=== PATIENT | male | born 1940 | race Caucasian/White ===

== ENCOUNTER 2022-03-17 16:56 | Emergency (ER) | payer MEDICARE, SELFPAY ==
--- NOTE | ~2022-03-17 | CT_ITS ---
EXAMINATION: CT abdomen pelvis wo/w con DATE: 03/17/2022 19:13 INDICATION: Hematuria. TECHNIQUE: Computed tomography (CT) of the abdomen and pelvis was performed without and with 130 cc O mnipaque 350 intravenous contrast. The dose-length product was 2564.33 mGy-cm. Automated exposure con trol and iterative reconstruction technique were employed. COMPARISON: None. FINDINGS: There is dependent atelectasis. Heart size normal. No significant pleural or pericardial ef fusion. No renal or ureteral stones. No hydronephrosis. Nonobstructive bowel gas pattern. No evidence for diverticulitis. There is a fat-containing right inguinal hernia. There is atherosclerosis of the aorta without aneurysm. There are a few borderline sized mesenteric lymph nodes, likely reactive. Th ere are gallstones. Fatty infiltration of the liver. The spleen, pancreas, adrenal glands and kidneys are unremarkable. U reters are normal in course and caliber. Prostate gland is enlarged. Bladder wall is thickened. Prost ate gland is enlarged. No acute osseous abnormality. IMPRESSION: 1. Bladder wall thickening which may be due to cystitis or outlet obstruction from enlarged prostate gland. 2: Cholelithiasis. 3: Hepatic steatosis. Reviewed, dictated and finalized at location A. IMPRESSION: 1. Bladder wall thickening which may be due to cystitis or outlet obstruction f rom enlarged prostate gland. 2: Cholelithiasis. 3: Hepatic steatosis.
[2022-03-17 16:58] VITALS: BP 139/69; PULSE 79; RESP 20; TEMP 36.4; O2SAT 99
--- NOTE | 2022-03-17 17:46 | ED.GENADULT ---
HPI - General Adult General Chief complaint: Urogenital-Male Stated complaint: hematuria Time Seen by Provider: 03/17/22 17:05 Source: patient Mode of arrival: ambulatory Limitations: no limitations History of Present Illness HPI narrative: Patient is an 81-year-old male who presents the ED with report of hematuria. Patient reports he had an episode of hematuria just prior to arrival in which blood was mixed in with the urine stream. He denied any dysuria or pain or pressure. He did notice a small amount of blood coming from the tip of his penis afterwards. He denies any back pain, abdominal pain, nausea, vomiting, fevers, testicular pain/swelling. Patient sees a urologist in [facility]. He contacted the office and was referred to the ED. He has had 1 previous episode of hematuria, but did not notify his urologist about this. Patient is not on any blood thinners. Related Data Allergies Allergy/AdvReac Type Severity Reaction Status Date / Time No Known Allergies Allergy Verified 03/17/22 17:13 Review of Systems Review of Systems: CONSTITUTIONAL: Denies fever, chills, or sweats. CARDIOVASCULAR: Denies chest pain. RESPIRATORY: Denies dyspnea. GASTROINTESTINAL: Denies abdominal pain, nausea, vomiting. GENITOURINARY: Reports painless hematuria. Denies dysuria, testicular pain/swelling. MUSCULOSKELETAL: Denies back pain, flank pain. All systems reviewed & are unremarkable except as noted in HPI and below PMFSH Past Medical History Medical History (Updated 03/17/22 @ 19:54 by Lisa Og PA-C) BPH (benign prostatic hyperplasia) Hyperlipidemia Hypertension Surgical History Surgical History (Updated 03/17/22 @ 19:47 by Lisa Og PA-C) No pertinent past surgical history Social History Social History (Updated 03/17/22 @ 17:51 by Lisa Og PA-C) Smoking status: Never smoker Exam Narrative: GENERAL: Well appearing, obese, non-toxic, in no acute distress. HEAD: Normocephalic, atraumatic. NECK: Supple. No adenopathy, no masses. RESPIRATORY: Airway patent, respirations nonlabored. Clear to auscultation bilaterally, no rales, rhonchi, wheezing. CARDIOVASCULAR: Regular rate and rhythm without murmurs, rubs, or gallops. Peripheral pulses 2+ and equal bilaterally. ABDOMINAL: Soft, nontender, nondistended, no hepatosplenomegaly. Normoactive BS. No CVA tenderness to percussion. MUSCULOSKELETAL: Moves all extremities. Strength/ROM intact without gross deformities. No lower back tenderness. SKIN: Warm, dry, normal color. No rashes. NEURO: A&O X3. Speech clear. Cranial nerves II-XII grossly intact. Steady gait. No ataxic movements. PSYCHIATRIC: Appropriate mood and affect. Normal interaction. Course Consultations Consultation #1: Discussed case with Dr. Butler, Urology, will see patient in office. Date: 03/17/22 Time: 19:57 Vital Signs Vital signs: Vital Signs Temperature 97.6 F 03/17/22 16:58 Pulse Rate 79 03/17/22 16:58 Respiratory Rate 20 03/17/22 16:58 Blood Pressure 139/69 03/17/22 16:58 Pulse Oximetry 99 03/17/22 16:58 Temperature 97.6 F 03/17/22 16:58 Pulse Rate 79 03/17/22 16:58 Respiratory Rate 20 03/17/22 16:58 Blood Pressure 139/69 03/17/22 16:58 Pulse Oximetry 99 03/17/22 16:58 Medical Decision Making MDM Narrative Medical decision making narrative: Patient presented to ED with 1 episode of painless hematuria. Vital signs stable upon arrival. Hemoglobin hematocrit stable at 13.3/39.5. Stable kidney function with creatinine at 0.8. Urine with 3+ blood, greater than 75 RBC, no signs of infection. CT scan of abdomen pelvis with and without contrast obtained (CT urogram) and showing bladder wall thickening which may be due to outlet obstruction from enlarged prostate gland. Patient has known history of enlarged prostate gland. He is on Flomax. Discussed case with urology, will see patient in the office for cystoscopy. Isabel
[2022-03-17 17:51] LABS: Basophils Percent Auto 0.4 % (0.2-1.2); Eosinophils Absolute Auto 0.3 K/mm3 (0-0.3); Eosinophils Percent Auto 4.3 % (0-4.4); Hematocrit 39.5 % (42.0-52.0); Hemoglobin 13.3 g/dL (14.0-18.0); Immature Granulocyte Absolute 0.03 K/mm3 (0.00-0.031); Immature Granulocyte Percent A 0.4 % (0-0.5); Lymphocytes Absolute Auto 1.77 K/mm3 (0.9-3.2); Lymphocytes Percent Auto 26.5 % (18.3-44.2); Mean Corpuscular HGB Conc 33.7 g/dl (32-36); Mean Corpuscular Hemoglobin 31.8 pg (26-34); Mean Corpuscular Volume 94.5 fl (80-100); Mean Platelet Volume 10.5 fl (7.4-10.4); Monocytes Absolute Auto 0.7 K/mm3 (0.1-0.6); Monocytes Percent Auto 10.9 % (2.6-8.5); Neutrophils Absolute Auto 3.8 K/mm3 (1.3-6.7); Neutrophils Percent Auto 57.5 % (45.5-73.1); Platelet Count Result 183 k/mm3 (150-375); Red Blood Count 4.18 M/mm3 (4.6-6.20); Red Cell Distribution Width 12.7 % (11.5-14.5); White Blood Count 6.7 K/mm3 (4.5-10.0)
[2022-03-17 18:01] LABS: Alanine Aminotransferase 84 U/L (6-50); Albumin Level 4.6 g/dL (3.5-5.1); Alkaline Phosphatase 75 U/L (38-126); Anion Gap 12 mmol/L (8-16); Aspartate Amino Transferase 72 U/L (17-59); Bilirubin,Total 0.7 mg/dL (0.2-1.3); Blood Urea Nitrogen 15 mg/dL (9-20); Calcium 9.2 mg/dL (8.4-10.2); Carbon Dioxide 21 mmol/L (22-30); Chloride 104 mmol/L (98-107); Estimated CRCL calculation 81 ml/min; Estimated Glomerular Filt Rate > 60; Glucose 120 mg/dL (65-110); Potassium 4.5 mmol/L (3.4-5.0); Sodium 137 mmol/L (137-145)
[2022-03-17 18:04] LABS: Add Urine Microscopic? YES; Appearance Urine Cloudy (Clear); Bacteria Urine Trace /hpf; Bilirubin Urine Negative (Negative); Blood Urine 3+ (Negative); Color Urine Yellow (Yellow); Glucose Urine UA Negative (Negative); Ketones Urine Negative (Negative); Leukocyte Esterase Ur Negative LEU/UL (Negative); Mucus Urine Rare /lpf; Nitrate Urine Negative (Negative); Protein Urine Negative (Negative); RBC Urine >75 /hpf (0-2); Specific Grav Ur 1.017 (1.001-1.035); WBC Urine 0-3 /hpf
== END 2022-03-17 20:12 | disposition home or self-care (01) ==
PROVIDERS: Physician Assistant; Emergency Provider General Practice
DX: R31.9 Hematuria, unspecified (principal); N40.0 Benign prostatic hyperplasia without lower urinary tract symptoms; E78.5 Hyperlipidemia, unspecified; I10 Essential (primary) hypertension; K80.20 Calculus of gallbladder without cholecystitis without obstruction; K76.0 Fatty (change of) liver, not elsewhere classified; R93.41 Abnormal radiologic findings on diagnostic imaging of renal pelvis, ureter, or bladder
CPT/HCPCS: 36415; 74178; 80053; 81001; 85025; 99284; Q9967

== ENCOUNTER 2022-03-18 09:29 | Inpatient (IN) | payer MEDICARE, SELFPAY ==
[2022-03-18 09:44] VITALS: BP 184/90; PULSE 84; RESP 20; TEMP 36.7; O2SAT 97
[2022-03-18 10:38] LABS: Basophils Percent Auto 0.4 % (0.2-1.2); Eosinophils Absolute Auto 0.2 K/mm3 (0-0.3); Hematocrit 37.4 % (42.0-52.0); Hemoglobin 12.5 g/dL (14.0-18.0); Immature Granulocyte Absolute 0.02 K/mm3 (0.00-0.031); Immature Granulocyte Percent A 0.4 % (0-0.5); Lymphocytes Absolute Auto 0.93 K/mm3 (0.9-3.2); Lymphocytes Percent Auto 16.8 % (18.3-44.2); Mean Corpuscular HGB Conc 33.4 g/dl (32-36); Mean Corpuscular Hemoglobin 31.9 pg (26-34); Mean Corpuscular Volume 95.4 fl (80-100); Mean Platelet Volume 11.1 fl (7.4-10.4); Monocytes Absolute Auto 0.5 K/mm3 (0.1-0.6); Monocytes Percent Auto 9.8 % (2.6-8.5); Neutrophils Absolute Auto 3.8 K/mm3 (1.3-6.7); Neutrophils Percent Auto 68.6 % (45.5-73.1); Platelet Count Result 178 k/mm3 (150-375); Red Blood Count 3.92 M/mm3 (4.6-6.20); Red Cell Distribution Width 12.9 % (11.5-14.5); White Blood Count 5.5 K/mm3 (4.5-10.0)
[2022-03-18 10:50] LABS: Partial Thromboplastin Time 25.6 SECONDS (22.3-36.8)
[2022-03-18 11:09] LABS: Anion Gap 11 mmol/L (8-16); Blood Urea Nitrogen 17 mg/dL (9-20); Calcium 9.2 mg/dL (8.4-10.2); Carbon Dioxide 22 mmol/L (22-30); Chloride 105 mmol/L (98-107); Estimated Glomerular Filt Rate > 60; Glucose 218 mg/dL (65-110); Potassium 5.1 mmol/L (3.4-5.0); Sodium 138 mmol/L (137-145)
[2022-03-18 11:13] LABS: Add Urine Microscopic? YES; Appearance Urine Cloudy (Clear); Bacteria Urine 3+ /hpf; Bilirubin Urine Negative (Negative); Blood Urine 2+ (Negative); Budding Yeast Urine Present /hpf; Color Urine Red (Yellow); Glucose Urine UA Negative (Negative); Ketones Urine Negative (Negative); Leukocyte Esterase Ur Negative LEU/UL (Negative); Nitrate Urine Negative (Negative); Protein Urine 2+ mg/dL (Negative); RBC Urine >75 /hpf (0-2); Urobilinogen Urine Negative mg/dL (<2.0); WBC Urine >75 /hpf
[2022-03-18 11:20] LABS: Specific Grav Ur 1.044 (1.001-1.035)
--- NOTE | 2022-03-18 11:45 | WPDEDEXPGENP ---
HPI - General Ped General Chief complaint: Urogenital-Male Stated complaint: unable to urinate Time Seen by Provider: 03/18/22 09:37 Source: RN notes reviewed History of Present Illness HPI narrative: Patient presents emergency department from home for hematuria and urinary retention. Patient states he been unable to urinate since last night states. The patient began having blood in his urine yesterday seen in the emergency department at that time had a work-up that was negative he was urinating fine yesterday urology had been consulted and agreed for follow-up as an outpatient. Patient states he does have a history of prostate cancer he lives at [facility] but his significant other lives up here and is followed at the [facility] for urology he denies any fevers or chills states he was having lower abdominal pain with urinary retention denies nausea vomiting Related Data Allergies Allergy/AdvReac Type Severity Reaction Status Date / Time No Known Allergies Allergy Verified 03/17/22 17:13 Pediatric Review of Systems Review of Systems: Gen.: Denies fevers or chills ENT: Denies congestion Respiratory: Denies shortness of breath or cough CV: Denies chest pain or palpitations GI: Reports lower abdominal pain, denies nausea, emesis or diarrhea see HPI Musculoskeletal: Denies back pain or muscle pain Neuro: Denies numbness, tingling, weakness or focal weakness Skin: Denies rash Except as documented, all other systems reviewed and negative [facility] Past Medical History Medical History BPH (benign prostatic hyperplasia) Hyperlipidemia Hypertension Surgical History Surgical History (Updated 03/17/22 @ 19:47 by Lisa Og PA-C) No pertinent past surgical history Social History Social History Smoking status: Never smoker Pediatric Exam Narrative: Physical exam: APPEARANCE: No acute distress, nontoxic, resting in bed EYES: EOMI HEENT: Normocephalic, atraumatic, OMM RESPIRATORY: No respiratory distress Clear to auscultation bilaterally with no rhonchi wheezing or rales. CARDIOVASCULAR: Regular rate and rhythm without murmurs rubs or gallops. ABDOMINAL: Soft, nondistended tender palpation in suprapubic region no tenderness right upper quadrant, left upper quadrant, right lower quadrant and left lower quadrant no rebound or guarding MUSCULOSKELETAl: Moves all extremities. No clubbing, cyanosis or edema. NEURO: Awake and alert. Following commands, speech normal, no focal deficits SKIN:: Warm, dry. No rashes lesions or abrasions PSYCHIATRIC: Normal affect/mood, Course Course Emergency Course: Reviewed old records patient had a CT scan yesterday showed no acute process. Blount catheter was placed approximately 150 mL out Patient has dropped his hemoglobin from yesterday Discussed with Dr. Butler for urology agrees with consult Discussed with Dr. Cotton agrees with admission Discussed with patient and family results of workup and diagnosis. Discussed need for admission. Patient and family understand and agree to current treatment plan Vital Signs Vital signs: Vital Signs Temperature 98.1 F 03/18/22 09:44 Pulse Rate 84 03/18/22 09:44 Respiratory Rate 20 03/18/22 09:44 Blood Pressure 184/90 H 03/18/22 09:44 Pulse Oximetry 97 03/18/22 09:44 Oxygen Delivery Room Air 03/18/22 09:44 Temperature 98.1 F 03/18/22 09:44 Pulse Rate 84 03/18/22 09:44 Respiratory Rate 20 03/18/22 09:44 Blood Pressure 184/90 H 03/18/22 09:44 Pulse Oximetry 97 03/18/22 09:44 Oxygen Delivery Room Air 03/18/22 09:44 Medical Decision Making Vital Signs Vital Signs: Vital Signs Temperature 98.1 F 03/18/22 09:44 Pulse Rate 84 03/18/22 09:44 Respiratory Rate 20 03/18/22 09:44 Blood Pressure 184/90 H 03/18/22 09:44 Pulse Oximetry 97 03/18/22
--- NOTE | 2022-03-18 11:56 | WPDURCON ---
Assessment and Plan Assessment and plan (1) Acute urinary retention: Code(s): R33.8 - Other retention of urine Status: Acute Plan 82M with a history of prostate cancer presenting with hematuria and urinary retention s/p catheter placement with negative CT urogram but signs of infection on UA with WBC and bacteria noted, and slight decreased in hemoglobin. - Agree with admission with catheter in place for observation. If catheter continues to drain clear, no further intervention required from urologic perspective inpatient. - Recommend appropriate treatment of urinary tract infection, which may be cause of retention and hematuria. However, patient requires outpatient hematuria work up completion with cystoscopy. - Would plan to discharge with catheter in place for appropriate drainage with potential infection, and can attempt trial of void outpatient at the time of clinic visit for hematuria work up. 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 Crowell at [facility] (patient lives in [facility] and visits his girlfriend here) who presents with hematuria and urinary retention. States he had an episode of hematuria pand presenting to the ED last night, though his urine had cleared and he was able to urinate thereafter. Had a CT urogram without any significant abnormal findings. However, represents today with persistent hematuria and urinary retention. A catheter was placed with 800cc that came out; UA does show concern for infection, and patient's hemoglobin dropped slightly from yesterday's labs. Denies fevers/chill. Cr appropriate at 0.7. Review of Systems Review of Systems: Negative other than HPI PMFSH Past Medical History Medical History (Updated 03/18/22 @ 16:34 by Melissa Genao PA-C) Benign prostatic hyperplasia Status post external radiation and hormone therapy. Followed by a urologist at the [facility]. Coronary artery disease [place] in 2018 status post stent placement. Hyperlipidemia Hypertension Prostate cancer Type 2 diabetes mellitus Surgical History Surgical History (Updated 03/18/22 @ 16:30 by Melissa Genao PA-C) History of cardiac catheterization History of coronary artery stent placement History of excision of pilonidal cyst History of left knee replacement History of parotidectomy History of umbilical hernia repair Family History Family History (Updated 10/08/22 @ 16:31 by Melissa Genao PA-C) Other Diabetes mellitus Heart disease Social History Social History (Updated 03/18/22 @ 16:33 by Melissa Genao PA-C) Social History: Surrogate medical decision maker: Clara Lozano, significant other. Code status: Full code. Smoking status: Former smoker Alcohol intake: current Drinks per week: 10 Substance use: never Additional living arrangements comments: Originally from [place], [place]. He now lives at [facility] and spends his live in [place], [place]. 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 Spiritual care concerns: No Meds Home Medications and Allergies Home Medications Medication Instructions Recorded Confirmed Type amlodipine 10 mg tablet 5 mg PO DAILY 03/18/22 03/18/22 History atorvastatin 40 mg tablet 40 mg PO DAILY 03/18/22 03/18/22 History finasteride 5 mg tablet 5 mg PO DAILY 03/18/22 03/18/22 History lansoprazole 30 mg capsule,delayed 30 mg PO DAILY 03/18/22 03/18/22 History release lisinopril 40 mg tablet 10 mg PO BID 03/18/22 03/18/22 History sitagliptin 50 mg-metformin 1,000 1 tablet PO BID 03/18/22 03/18/22 History mg tablet (Janumet) tamsulosin 0.4 mg capsule 0.4 mg PO DAILY 03/18/22 03/18/22 History Allergies Allergy/AdvReac Type Severity Reaction Status Date / Time No Known Gustavo
[2022-03-18 12:01] VITALS: BP 147/76; PULSE 63; RESP 18; TEMP 36.8; O2SAT 96
--- NOTE | 2022-03-18 13:19 | ADMGEN ---
This patient, Francisco Reese, was admitted to 3 [facility] Surg Room 331-01 at 1310. Patient/family oriented to hospital policies and general routines including ID bracelet, bed and alarms, visiting hours, pain management, procedures, bathroom and other care routines, personal items, smoking policy, room service/diet, and visiting hours. Information on how to activate the Rapid Response Team has been discussed. Patient/Family are encouraged to report perceived risks to care and to ask questions if they do not understand what they are told or what they should do.
[2022-03-18 13:31] VITALS: BMI 32.1
[2022-03-18] MEDS: SODIUM CHLORIDE 0.9% IV 1,000 ML 80 ML IV CONT (13:44)
[2022-03-18 14:00] VITALS: BP 155/79; PULSE 69; RESP 18; TEMP 36.8; O2SAT 97
--- NOTE | 2022-03-18 16:30 | PM.IMHP ---
H&P: HPI History of Present Illness Date/Time: 03/18/22 16:30 Chief Complaint: Unable to urinate. Narrative: This is a very pleasant 81-year-old male with coronary artery disease and history of DC with stent 2018, type 2 diabetes mellitus, hypertension, hyperlipidemia, benign prostatic hyperplasia, and history of prostate cancer status post radiation and hormone therapy presented to the emergency department via private vehicle for evaluation of difficulties urinating. Last evening he developed painless hematuria and he was seen in the ED where he had an unremarkable workup and he was able to be discharged home. Overnight he continued to have hematuria with clots and this morning he had significant urge to urinate but was unable to do so. Blount catheter was inserted on arrival to the emergency department and he is being admitted in this setting. He has also been started on antibiotics for an abnormal urinalysis however he has not had symptoms of UTI and he specifically denies fever, chills, sweats, dysuria, urgency, frequency, etc.. He lives at [facility] and is here visiting his significant other and reports that he is followed by urologist in [place]. Review of Systems Review of Systems: Twelve systems were reviewed. No fever, chills, or sweats. No chest pain or shortness of breath. No nausea or vomiting. Except as documented, all other systems were reviewed and are negative. [facility] Past Medical History Medical History (Updated 03/18/22 @ 16:34 by Melissa Genao PA-C) Benign prostatic hyperplasia Status post external radiation and hormone therapy. Followed by a urologist at the [facility]. Coronary artery disease DC in 2018 status post stent placement. Hyperlipidemia Hypertension Prostate cancer Type 2 diabetes mellitus Surgical History Surgical History (Updated 03/18/22 @ 16:30 by Melissa Genao PA-C) History of cardiac catheterization History of coronary artery stent placement History of excision of pilonidal cyst History of left knee replacement History of parotidectomy History of umbilical hernia repair Family History Family History (Updated 03/18/22 @ 16:31 by Melissa Genao PA-C) Other Diabetes mellitus Heart disease Social History Social History (Updated 03/18/22 @ 16:33 by Melissa Genao PA-C) Social History: Surrogate medical decision maker: Clara Lozano, significant other. Code status: Full code. Smoking status: Former smoker Alcohol intake: current Drinks per week: 10 Substance use: never Additional living arrangements comments: Originally from [place], [place]. He now lives at [facility] and spends his live in [place], [place]. 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 Spiritual care concerns: No Meds Home Medications and Allergies Home Medications Medication Instructions Recorded Confirmed Type amlodipine 10 mg tablet 5 mg PO DAILY 03/18/22 03/18/22 History atorvastatin 40 mg tablet 40 mg PO DAILY 03/18/22 03/18/22 History finasteride 5 mg tablet 5 mg PO DAILY 03/18/22 03/18/22 History lansoprazole 30 mg capsule,delayed 30 mg PO DAILY 03/18/22 03/18/22 History release lisinopril 40 mg tablet 10 mg PO BID 03/18/22 03/18/22 History sitagliptin 50 mg-metformin 1,000 1 tablet PO BID 03/18/22 03/18/22 History mg tablet (Janumet) tamsulosin 0.4 mg capsule 0.4 mg PO DAILY 03/18/22 03/18/22 History Allergies Allergy/AdvReac Type Severity Reaction Status Date / Time No Known Allergies Allergy Verified 03/17/22 17:13 Vital Signs Vital Signs - 24 hr 03/18/22 09:44 03/18/22 12:01 03/18/22 13:40 Temperature 98.1 F 98.3 F Pulse Rate 84 63 Respiratory Rate 20 18 Blood Pressure 184/90 H 147/76 H Pulse Oximetry 97 96 Oxygen Delivery Room Air Room Air 03/18/22 14:00 Temperature 98.2 F Pulse Rate 69 Respiratory Rate 18 Blood Pressure 155/79 H Pulse
[2022-03-18 17:06] LABS: Hematocrit 35.4 % (42.0-52.0); Hemoglobin 11.9 g/dL (14.0-18.0)
[2022-03-18 17:12] LABS: Glucose Point of Care 145 mg/dl (65-105)
[2022-03-18] MEDS: metFORMIN HCL 500 MG TABLET 1000 MG PO (17:23)
[2022-03-18] MEDS: lisinopriL 10 MG TABLET PO (17:23)
[2022-03-18 17:24] LABS: Hemoglobin A1C 7.6 % (<5.7)
[2022-03-18 19:48] LABS: Glucose Point of Care 233 mg/dl (65-105)
[2022-03-18] MEDS: FINASTERIDE 5 MG TABLET PO (21:18)
[2022-03-18] MEDS: TAMSULOSIN HCL 0.4 MG CAPSULE PO (21:19)
[2022-03-18 22:00] VITALS: BP 146/73; PULSE 72; RESP 20; TEMP 36.8; O2SAT 96
[2022-03-19] MEDS: SODIUM CHLORIDE 0.9% IV 1,000 ML 80 ML IV CONT (05:29)
[2022-03-19 06:00] VITALS: BP 139/73; PULSE 77; RESP 16; TEMP 36.2; O2SAT 95
[2022-03-19 07:33] LABS: Basophils Percent Auto 0.4 % (0.2-1.2); Eosinophils Absolute Auto 0.2 K/mm3 (0-0.3); Eosinophils Percent Auto 3.9 % (0-4.4); Hematocrit 35.1 % (42.0-52.0); Hemoglobin 11.7 g/dL (14.0-18.0); Immature Granulocyte Absolute 0.01 K/mm3 (0.00-0.031); Immature Granulocyte Percent A 0.2 % (0-0.5); Lymphocytes Absolute Auto 1.22 K/mm3 (0.9-3.2); Lymphocytes Percent Auto 21.4 % (18.3-44.2); Mean Corpuscular HGB Conc 33.3 g/dl (32-36); Mean Corpuscular Hemoglobin 32.1 pg (26-34); Mean Corpuscular Volume 96.2 fl (80-100); Mean Platelet Volume 10.6 fl (7.4-10.4); Monocytes Absolute Auto 0.7 K/mm3 (0.1-0.6); Monocytes Percent Auto 11.4 % (2.6-8.5); Neutrophils Absolute Auto 3.6 K/mm3 (1.3-6.7); Neutrophils Percent Auto 62.7 % (45.5-73.1); Platelet Count Result 150 k/mm3 (150-375); Red Blood Count 3.65 M/mm3 (4.6-6.20); Red Cell Distribution Width 12.5 % (11.5-14.5); White Blood Count 5.7 K/mm3 (4.5-10.0)
[2022-03-19 08:03] LABS: Alanine Aminotransferase 61 U/L (6-50); Albumin Level 3.8 g/dL (3.5-5.1); Alkaline Phosphatase 53 U/L (38-126); Anion Gap 8 mmol/L (8-16); Aspartate Amino Transferase 38 U/L (17-59); Bilirubin,Total 0.7 mg/dL (0.2-1.3); Blood Urea Nitrogen 10 mg/dL (9-20); Calcium 8.9 mg/dL (8.4-10.2); Carbon Dioxide 28 mmol/L (22-30); Chloride 104 mmol/L (98-107); Estimated CRCL calculation 82 ml/min; Estimated Glomerular Filt Rate > 60; Glucose 176 mg/dL (65-110); Magnesium 1.6 mg/dL (1.6-2.3); Potassium 4.4 mmol/L (3.4-5.0); Sodium 140 mmol/L (137-145)
[2022-03-19] MEDS: ATORVASTATIN 40 MG TABLET PO (08:29)
[2022-03-19] MEDS: lisinopriL 10 MG TABLET PO (08:29)
[2022-03-19] MEDS: PANTOPRAZOLE 40 MG TABLET PO (08:29)
[2022-03-19] MEDS: metFORMIN HCL 500 MG TABLET 1000 MG PO (08:29)
[2022-03-19] MEDS: amLODIPine BESYLATE 5 MG TABLET PO (08:30)
[2022-03-19 09:08] LABS: Glucose Point of Care 190 mg/dl (65-105)
[2022-03-19] MEDS: MAGNESIUM SULF 2 GM/WATER 50ML 2 GM/50 ML BAG IVPB (09:40)
--- NOTE | 2022-03-19 10:30 | PM.DS ---
DS: Admitting Diagnosis Discharge Date 03/19/22 1030 Admitting Diagnosis Urinary retention and UTI DS: Discharge Diagnosis Discharge Diagnosis (1) Acute urinary retention: Code(s): R33.8 - Other retention of urine Status: Acute Assessment and Plan: Blount catheter is now draining andrea colored urine. Urology has been consulted for their opinion. (2) Abnormal urinalysis: Code(s): R82.90 - Unspecified abnormal findings in urine Status: Acute Assessment and Plan: No systemic signs of acute infection, may be related to retention. Continue ceftriaxone, pending urine culture. (3) Type 2 diabetes mellitus: Code(s): E11.9 - Type 2 diabetes mellitus without complications Status: Acute Assessment and Plan: Random glucose today was 214. Continue Janumet and initiate sliding scale insulin. (4) Benign prostatic hyperplasia: Code(s): N40.0 - Benign prostatic hyperplasia without lower urinary tract symptoms Status: Acute Assessment and Plan: Continue tamsulosin and finasteride. (5) Coronary artery disease: Code(s): I25.10 - Atherosclerotic heart disease of [place] coronary artery without angina pectoris Status: Acute Assessment and Plan: No acute issues. Continue statin. Hold baby aspirin given hematuria. (6) Hypertension: Code(s): I10 - Essential (primary) hypertension Status: Acute Assessment and Plan: Blood pressures were reviewed and they are reasonable. His antihypertensives will be reviewed and resumed as appropriate. (7) Hematuria: Code(s): R31.9 - Hematuria, unspecified Status: Acute Assessment and Plan: Urine is draining clear h/h remains stable 11.7/35.1 Will have patient get outpatient labs in one week DS: Summary Hospital Course Hospital Course: Patient is an 82-year-old male with a history of prostate cancer, hypertension, hyperlipidemia, and diabetes who presented to the ED with complaints of hematuria. it is noted the patient has been here twice and was noted to have hematuria. Patient also has a noted drop in hemoglobin that is very slight mild. urinary catheter was inserted and patient was relieved of symptoms. Patient is draining clear yellow urine at this time. Flomax and finasteride has been resumed. UA was suspicious for possible infection. Patient was started on ceftriaxone however will be converted to cefepime for now. Education about Blount care has been given. Patient denies any current other issues including chest paint, shortness of breath, nausea, vomiting, diarrhea, constipation, lightheadedness, dizziness, weakness or fatigue. Urology has also been consulted and is recommending outpatient follow-up with a workup of hematuria including a scope. Patient does follow urologist in [place] however the urologist is out of town for about a month will refer him to our group for now. Labs and vital signs remained stable and patient is stable for discharge at this time. Urinary catheter and Blount catheter training has been given and education has been given all questions were answered. Status at Discharge Functional status at discharge: independent ambulation Overall status at discharge: patient is progressing back to baseline Time Spent with Patient Time attestation: Total time spent providing and/or coordinating discharge services: 37 minutes Time spent: Greater than 30 minutes Specific discharge activities: Diagnostic testing, chart review, developing a treatment plan, education, care coordination documentation, physical exam, result review Exam Const: General: cooperative, healthy appearing, no acute distress, well developed, alert, awake and well nourished Nutritional Appearance: well nourished Orientation/consciousness: patient oriented x3 Limitations: no limitations HENMT: Head: normal to inspection Ears: hearing grossly normal bilat
[2022-03-19 11:15] LABS: Glucose Point of Care 194 mg/dl (65-105)
== END 2022-03-19 11:50 | disposition home or self-care (01) | DRG 726 ==
LOC: ANHED 11:52 → ANH3MEDSUR 12:24
PROVIDERS: Physician Assistant; Admitting Provider Internal Medicine; Emergency Provider Emergency Medicine; Visit Provider Nurse Practitioner
DX: N40.1 Benign prostatic hyperplasia with lower urinary tract symptoms (principal); R33.8 Other retention of urine; R82.90 Unspecified abnormal findings in urine; C61 Malignant neoplasm of prostate; I10 Essential (primary) hypertension; D64.9 Anemia, unspecified; E78.5 Hyperlipidemia, unspecified; R31.9 Hematuria, unspecified; Z96.652 Presence of left artificial knee joint; I25.2 Old myocardial infarction; Z95.5 Presence of coronary angioplasty implant and graft
CPT/HCPCS: 36415; 51702; 74178; 80048; 80053; 81001; 82948; 83036; 83735; 85014; 85018; 85025; 85610; 85730; 86850; 86900; 86901; 87086; 96365; 99284; 99285; A9270; G0378; J0696; J3475; J7030; Q9967

== ENCOUNTER 2022-03-22 11:38 | Outpatient (CLI) | payer MEDICARE, SELFPAY ==
[2022-03-22 12:21] LABS: Basophils Percent Auto 0.5 % (0.2-1.2); Eosinophils Absolute Auto 0.3 K/mm3 (0-0.3); Eosinophils Percent Auto 4.8 % (0-4.4); Hematocrit 37.2 % (42.0-52.0); Hemoglobin 12.5 g/dL (14.0-18.0); Immature Granulocyte Absolute 0.03 K/mm3 (0.00-0.031); Immature Granulocyte Percent A 0.5 % (0-0.5); Lymphocytes Absolute Auto 1.61 K/mm3 (0.9-3.2); Mean Corpuscular HGB Conc 33.6 g/dl (32-36); Mean Corpuscular Hemoglobin 31.5 pg (26-34); Mean Corpuscular Volume 93.7 fl (80-100); Mean Platelet Volume 10.7 fl (7.4-10.4); Monocytes Absolute Auto 0.7 K/mm3 (0.1-0.6); Monocytes Percent Auto 10.7 % (2.6-8.5); Neutrophils Absolute Auto 3.6 K/mm3 (1.3-6.7); Neutrophils Percent Auto 57.5 % (45.5-73.1); Platelet Count Result 197 k/mm3 (150-375); Red Blood Count 3.97 M/mm3 (4.6-6.20); Red Cell Distribution Width 12.5 % (11.5-14.5); White Blood Count 6.2 K/mm3 (4.5-10.0)
== END 2022-03-22 11:39 | disposition home or self-care (01) ==
LOC: ANHLAB 11:41
PROVIDERS: Visit Provider Nurse Practitioner
DX: D64.9 Anemia, unspecified (principal)
CPT/HCPCS: 36415; 85025